=== PATIENT | male | born 1945 | race Caucasian/White ===

== ENCOUNTER 2016-05-31 18:03 | Observation (INO) | payer OTHER, MEDICARE ==
[2016-05-31] MEDS ORDERED: SODIUM CHLORIDE 0.9% FLUSH 10 ML SOL IV PRN (18:09)
[2016-05-31 18:26] LABS: BASOPHILS % (AUTO) 0 % (0-3); EOSINOPHILS % (AUTO) 2 % (0-9); HEMATOCRIT 37 % (39-53); MEAN CORPUSCULAR HGB CONC 32.4 gm/dl (32.0-36.0); MONOCYTES % (AUTO) 5.8 % (0-12); NEUTROPHILS % (AUTO) 67.4 % (37-80)
[2016-05-31 18:31] LABS: MEAN CORPUSCULAR VOLUME 79 fL (80-100)
[2016-05-31 18:42] LABS: ALT 17 IU/L (14-63); CALCIUM 8.4 mg/dl (8.5-10.1); GLOM FILT RATE 65 mL/min (>60); POTASSIUM 4.3 mMol/L (3.5-5.1); SODIUM 140 mMol/L (136-145)
[2016-05-31 20:00] LABS: APPEARANCE,URINE Clear; BILIRUBIN,URINE NEGATIVE (NEGATIVE); COLOR,URINE Yellow; GLUCOSE, URINE (UA) NEGATIVE (NEGATIVE); KETONES,URINE NEGATIVE (NEGATIVE); LEUKOCYTE ESTERASE ,URINE NEGATIVE (NEGATIVE); NITRATE,URINE NEGATIVE (NEGATIVE); OCCULT BLOOD,URINE 2+ (NEG-TRACE); UROBILINOGEN,URINE 0.2 (0.2-1.0 EU)
[2016-05-31] MEDS ORDERED: NITROGLYCERIN 0.4 MG TAB SL SCH (20:15)
[2016-05-31] MEDS ORDERED: LAMOTRIGINE 25 MG TAB PO ONE (20:15)
[2016-05-31] MEDS ORDERED: WARFARIN SODIUM 2 MG TAB PO SCH (20:15)
[2016-05-31] MEDS ORDERED: SERTRALINE HYDROCHLORIDE 50 MG TAB PO SCH (21:00)
[2016-05-31 21:19] VITALS: RESP 18
[2016-05-31] MEDS: ACETAMINOPHEN 500 MG 500 MG TAB PO SCH (21:51)
[2016-06-01 00:09] VITALS: O2SAT 92
[2016-06-01] MEDS ORDERED: LAMOTRIGINE 25 MG TAB PO SCH (09:00)
[2016-06-01] MEDS ORDERED: OXYCODONE HYDROCHLORIDE 5 MG TAB PO SCH (09:00)
[2016-06-01] MEDS ORDERED: PANTOPRAZOLE SODIUM 40 MG ECT PO SCH (09:00)
[2016-06-01] MEDS ORDERED: ASPIRIN EC 81 MG PO SCH (09:00)
[2016-06-01] MEDS ORDERED: METOPROLOL TARTRATE 50 MG TAB PO SCH (09:00)
[2016-06-01] MEDS ORDERED: OMEPRAZOLE 20 MG CAPSULE PO SCH (09:00)
[2016-06-01] MEDS ORDERED: ATORVASTATIN CALCIUM 80 MG TAB PO SCH (09:00)
[2016-06-01] MEDS ORDERED: OXYCODONE HYDROCHLORIDE 5 MG TAB PO PRN (09:11)
[2016-06-01] MEDS: ACETAMINOPHEN 500 MG 500 MG TAB PO SCH (09:21)
[2016-06-01] MEDS ORDERED: ATORVASTATIN 10 MG TAB PO SCH (09:30)
[2016-06-01 09:33] VITALS: BP 121/71; PULSE 73; TEMP 98.3
[2016-06-06] MEDS ORDERED: WARFARIN SODIUM 1 MG TAB PO SCH (20:12)
== END 2016-06-01 13:15 | DRG 101 ==
LOC: ED 18:03 → UNDOADMOB 20:13 → ACUTE CARE 20:13
PROVIDERS: ADMIT Family Medicine; ATTEND Family Medicine
DX: R56.9 Unspecified convulsions (principal); I69.954 Hemiplegia and hemiparesis following unspecified cerebrovascular disease affecting left non-dominant side; R40.2362 Coma scale, best motor response, obeys commands, at arrival to emergency department; R40.2132 Coma scale, eyes open, to sound, at arrival to emergency department; R40.2242 Coma scale, best verbal response, confused conversation, at arrival to emergency department; R51 Headache; Z79.01 Long term (current) use of anticoagulants
CPT/HCPCS: 36415; 70450; 71010; 80053; 81001; 84484; 85025; 85610; 87040; 87205; 93005; 99218; 99285